=== PATIENT | male | born 2000 | race Caucasian/White ===

== ENCOUNTER 2020-12-17 22:22 | Emergency (ER) | payer BC ==
--- NOTE | 2020-12-17 22:53 | EDM.PDOC ---
ED HPI GENERAL MEDICAL PROBLEM - General Chief Complaint: Upper Extremity Injury/Pain Stated Complaint: INJURED LEFT WRIST Time Seen by Provider: 12/17/20 22:38 Source of Information: Reports: Patient, Family (Father) History Limitations: Reports: No Limitations - History of Present Illness INITIAL COMMENTS - FREE TEXT/NARRATIVE: Mr. Turner is a most pleasant 20-year-old man who now presents to the ED with a left wrist injury. He states that he collided with another player while playing basketball around 21:45 tonight, falling onto an outstretched left hand. He subsequently developed pain and swelling to the dorsal aspect of his left wrist. He is otherwise uninjured. He states that he previously suffered a left arm fracture, but no prior left wrist injury. The patient states that he took 2 tablets of Advil around 22:00, prior to coming to the ED. Here in the ED, the patient is initially found to be slightly bradycardic at 54 bpm, otherwise, he is hemodynamically stable, afebrile, saturating 100% on room air. Prior to buffy's left wrist injury, the patient denies having a recent fever, chills, sore throat, ear pain, nasal or sinus congestion, cough, dyspnea, chest pain, palpitations, nausea, vomiting, constipation, diarrhea, abdominal pain, urinary symptoms, recent weight gain or weight loss, recent bloody bowel movements or black bowel movements, recent joint aches, headaches, or rashes. The patient does not have a PCP. He has not received an influenza vaccine this season, and declined an offer to receive one here in the ED. Left Wrist Pain Score (Numeric/FACES): 8 - Related Data Allergies Allergy/AdvReac Type Severity Reaction Status Date / Time No Known Allergies Allergy Verified 12/17/20 22:36 Home Meds: Home Meds . [No Known Home Meds] 12/17/20 [History] Past Medical History Musculoskeletal History: Reports: Fracture (left forearm) Social & Family History - Tobacco Use Tobacco Use Status *Q: Never Tobacco User Second Hand Smoke Exposure: No - Caffeine Use Caffeine Use: Reports: Soda, Tea - Alcohol Use Alcohol Use History: Yes Alcohol Use Frequency: Socially - Recreational Drug Use Recreational Drug Use: No - Living Situation & Occupation Living situation: Reports: Single, Alone Occupation: Student ([employer]) Review of Systems - Review of Systems Review Of Systems: Comprehensive ROS is negative, except as noted in HPI. ED EXAM, GENERAL - Physical Exam Exam: See Below Exam Limited By: No Limitations General Appearance: Alert, WD/WN, No Apparent Distress Extremities: Other (There is a sizable swelling, measuring approximately 4 cm diameter, over the dorsal aspect of the left wrist, radial side. This is soft/compressible, but tender. No pain is induced in the wrist with compression of the mid radius and ulnar. No significant pain with passive ulnar or radial deviation of the left hand, however, pain is induced with passive flexion and extension of the left wrist. No tenderness to palpation of the left hand. Patient reports minor tingling to the left third, fourth, and fifth fingers, however, he has good flexion and extension in all 5 fingers, and all 5 left fingers are just as warm as the right.) Course - Vital Signs Last Recorded V/S: Last Vital Signs Temp 37.9 C 12/17/20 22:32 Pulse 54 L 12/17/20 22:32 Resp 18 12/17/20 22:32 BP 128/79 12/17/20 22:32 Pulse Ox 100 12/17/20 22:32 - Orders/Labs/Meds Orders: Active Orders 24 hr Category Date Time Status Wrist Comp Min 3V Lt [CR] Stat Exams 12/17/20 22:49 Taken - Re-Assessments/Exams Free Text/Narrative Re-Assessment/Exam: 12/17/20 22:50 As above, the patient fell onto an outstretched left hand around 21:45 this evening, and subsequently developed significant swelling with pain to the dorsal aspect of the wrist, primarily over the distal radius. A fracture is possible. I have ordered x-rays to evaluate. The patient already has an ice pack. He declined an offer for pain medication. 12/17/20 23:11 3-view radiographs of the left wrist appear to demonstrate a minimally displaced fracture of the distal radius. No apparent ulnar styloid injury. Formal read per the Radiologist pending. 12/17/20 23:29 I placed the patient's left upper extremity into an ulnar gutter splint with the elbow at 90 degrees in the hand and a "thumbs up" position. He tolerated the procedure well. I will discharge the patient home with recommendation that he ice and elevate his left wrist is much as possible over the next 2 to 3 days, to help minimize swelling. He can take [id number] ibuprofen as needed for discomfort. He is to follow-up with an Orthopedic Surgeon, either Dr. Lu or his own Orthopedic Surgeon back to[facility] in [place], this coming week. He will be given a CD-ROM of his x-ray images. Departure - Departure Time of Disposition: 23:31 Disposition: Home, Self-Care 01 Condition: Good Clinical Impression: Fracture of left distal radius - Discharge Information *PRESCRIPTION DRUG MONITORING PROGRAM REVIEWED*: Not Applicable *COPY OF PRESCRIPTION DRUG MONITORING REPORT IN PATIENT ELIZABETH: Not Applicable Instructions: Radial Fracture Referrals: PCP,None [Ordering Only Provider] - Isaias Lu MD [Physician] - Forms: ED Department Discharge Additional Instructions: You were seen in the emergency room after falling onto your left hand while playing basketball, injuring your left wrist. Work-up in the ER included x-rays of your left wrist, which demonstrate a minimally displaced distal radius fracture. Your left arm has been placed into a splint. The splint cannot get wet. We recommend that you ice and elevate your left wrist as much as possible over the next 2 to 3 days, to help minimize swelling. You may take [id number] ibuprofen, 3 tablets (600 mg) up to every 8 hours, with food, as needed for discomfort. We recommend that you follow-up with an Orthopedic Surgeon this coming week. You may see Dr. Isaias Lu in our clinic, or your own Orthopedic Surgeon in [place]. You have been provided a CD-ROM of your x-ray images in case you choose the latter. If any other problems, please do not hesitate to return to the ER. Sepsis Event Note (ED) - Evaluation Sepsis Screening Result: No Definite Risk - Focused Exam Vital Signs: Vital Signs Temp Pulse Resp BP Pulse Ox 12/17/20 22:32 37.9 C 54 L 18 128/79 100 - My Orders Last 24 Hours: My Active Orders 12/17/20 22:49 Wrist Comp Min 3V Lt [CR] Stat - Assessment/Plan Last 24 Hours: My Active Orders 12/17/20 22:49 Wrist Comp Min 3V Lt [CR] Stat
--- NOTE | 2020-12-18 10:05 | CR ---
Left wrist: 3 views of the left wrist were obtained. Comparison: No prior wrist study is available. Normal radial cleft is seen along the growth plate of the distal radius. Joint spaces are preserved. I do not see any definite fracture, dislocation or other bony abnormality is appreciated. Impression: 1. Nothing acute is definitely appreciated on left wrist exam. 2. If patient remains symptomatic, recommend repeat study in 10 - 14 days. Diagnostic code #2
== END 2020-12-17 23:50 | disposition home or self-care (01) ==
LOC: JD.ED 22:22
DX: S52.502A Unspecified fracture of the lower end of left radius, initial encounter for closed fracture (principal); W03.XXXA Other fall on same level due to collision with another person, initial encounter; Y93.67 Activity, basketball
CPT/HCPCS: 29125; 73110-26-LT; 73110-LT; 99283